=== PATIENT | male | born 2000 | race Hispanic/Latino ===

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

== ENCOUNTER 2022-07-15 20:23 | Emergency (ER) | payer BC, OTHER ==
[~2022-07-15] VITALS: Ht 185.4 cm; Wt 107.5 kg
[2022-07-15 20:25] VITALS: BP 127/62
[2022-07-15] MEDS ORDERED: IBUP-2071 PO (21:44)
[2022-07-15] MEDS ORDERED: MECL-262 PO (21:46)
== END 2022-07-15 21:59 | disposition home or self-care (01) ==
LOC: EDH 20:23
DX: R42 Dizziness and giddiness (principal); M54.2 Cervicalgia; M79.10 Myalgia, unspecified site; Z79.1 Long term (current) use of non-steroidal anti-inflammatories (NSAID)
CPT/HCPCS: 99282

== ENCOUNTER 2023-10-13 21:27 | Emergency (ER) | payer OTHER ==
[~2023-10-13] VITALS: Ht 185.4 cm; Wt 107.0 kg
[~2023-10-13 21:27] MED LIST: IBUP-2071 PO; MECL-262 PO
[2023-10-13 22:02] VITALS: BP 148/78; PULSE 98; RESP 18
[2023-10-13] MEDS ORDERED: KETOROLAC 60 MG VIAL (30MG/ML) IM ONE (22:30)
[2023-10-13] MEDS ORDERED: ACETAMINOPHEN 500 MG TABLET PO ONE (22:30)
[2023-10-14 00:41] LABS: RAPID GROUP A STREP negative (NEGATIVE)
[2023-10-14 00:42] LABS: SARS-CoV-2, RNA, NAAT NEGATIVE SARS CoV-2 (NEGATIVE)
[2023-10-14 00:50] LABS: INFLUENZA TYPE A Negative For Type A (NEGATIVE); INFLUENZA TYPE B Negative For Type B (NEGATIVE)
[2023-10-14] MEDS ORDERED: IBUP-2070 PO (00:59)
[2023-10-14] MEDS ORDERED: AZIT250T9 PO (00:59)
[2023-10-14] MEDS ORDERED: PHEN118L19 PO (00:59)
[2023-10-14] MEDS ORDERED: PSEU120T62 PO (00:59)
[2023-10-14] MEDS ORDERED: ALBU6.7H14 IH (00:59)
== END 2023-10-14 01:08 | disposition home or self-care (01) ==
LOC: EDH 21:27
DX: J01.90 Acute sinusitis, unspecified (principal); J20.9 Acute bronchitis, unspecified; F17.200 Nicotine dependence, unspecified, uncomplicated; Z20.822 Contact with and (suspected) exposure to COVID-19; Z79.899 Other long term (current) drug therapy
CPT/HCPCS: 99284; 71045; 87635; 87880; 87804 ×2; 96372; J1885